=== PATIENT | female | born 1945 | race Caucasian/White ===

== ENCOUNTER 2016-09-17 16:21 | Emergency (ER) | payer MEDICARE, MEDICAID ==
[~2016-09-17] VITALS: Ht 175.3 cm; Wt 93.0 kg
== END 2016-09-17 18:15 | disposition short-term general hospital (02) ==
LOC: ER 16:21
DX: S00.83XA Contusion of other part of head, initial encounter (principal); M17.11 Unilateral primary osteoarthritis, right knee; W01.10XA Fall on same level from slipping, tripping and stumbling with subsequent striking against unspecified object, initial encounter